=== PATIENT | female | born 1980 | race Caucasian/White ===

== ENCOUNTER 2018-10-26 22:24 | Emergency (ER) | payer MEDICAID ==
[~2018-10-26] VITALS: Ht 154.9 cm; Wt 68.1 kg
[2018-10-26 22:36] VITALS: BP 158/93
--- NOTE | 2018-10-26 22:40 | NUR ---
TRIAGE COMPLETE. VSS. SPEAKING IN FULL COMPLETE SENTENCES WITHOUT DIFFICULTY. NO SOB. NO CP. PLACED INTO LOBBY FOR NEXT AVAILABLE BED.
--- NOTE | 2018-10-27 00:30 | NUR ---
PT AMBULATED TO BED 01
--- NOTE | 2018-10-27 00:50 | NUR ---
37 Y/O FEMALE BIB FRIEND C/O A POSSIBLE ALLERGIC REACTION TO LEVOTHRYOXINE. PER PATIENT'S FRIEND, PT TOOK MEDICATION AN HOUR AGO BUT NOW FEELS THAT IT IS HARD TO SWALLOW. PATIENT IS IN NO APPARENT DISTRESS OR SOB. RR IS 18; SPO2 IS 100% ON ROOM AIR. SHE IS ABLE TO SPEAK IN FULL SENTENCES WITHOUT DIFFICULTY. A/OX4; MUCOUS MEMBRANES PINK AND MOIST; TONSILS ARE +2 AND SYMMETRICAL IN SIZE. ER MD MADE AWARE OF STATUS. SIDE RAILS+1 AND PLACED ON MONITOR. PMH:HYPORTHYROIDISM; IRREGULAR MENSTRUAL PERIODS ALLERGIES: ASPIRIN AND POSSIBLLY LEVOTHYROXINE RX:LEVOTHYROXINE
--- NOTE | 2018-10-27 01:22 | NUR ---
ER MD AT BEDSIDE EVALUATING PATIENT.
[2018-10-27] MEDS ORDERED: DEXAMETHASONE 4 MG/ML VIAL PO ONE (01:30)
[2018-10-27 02:58] VITALS: BP 131/72
--- NOTE | 2018-10-27 03:00 | NUR ---
Patient discharged with v/s stable. Written and verbal after care instructions given and explained. Patient alert, oriented and verbalized understanding of instructions. Ambulatory with steady gait. All questions addressed prior to discharge. ID band removed. Patient advised to follow up with PMD. Rx of BENADRYL ALLERGY 25MG given. Patient educated on indication of medication including possible reaction and side effects. Opportunity to ask questions provided and answered.
== END 2018-10-27 02:58 | disposition home or self-care (01) ==
LOC: MED 22:24
DX: R13.10 Dysphagia, unspecified (principal); R06.02 Shortness of breath; R00.2 Palpitations; Z86.39 Personal history of other endocrine, nutritional and metabolic disease; Z98.890 Other specified postprocedural states; Z88.6 Allergy status to analgesic agent; Z88.8 Allergy status to other drugs, medicaments and biological substances
CPT/HCPCS: 81002; 81025; 99283; J1100; Q0163